=== PATIENT | female | born 1970 | race African-American/Black ===

== ENCOUNTER 2018-07-24 11:24 | Day surgery (SDC) | payer MEDICAID ==
[~2018-07-24 11:24] MED LIST: AK-Dilate ONE; IOPIDINE ONE; MYDRIACYL ONE
[2018-07-24] MEDS ORDERED: IOPIDINE OD ONE (12:15)
[2018-07-24] MEDS ORDERED: AK-Dilate OD ONE (12:16)
[2018-07-24] MEDS ORDERED: MYDRIACYL OD ONE (12:16)
[2018-07-24 14:33] VITALS: BP 115/76
== END 2018-07-24 14:30 | disposition home or self-care (01) ==
LOC: OR 11:24
PROVIDERS: ATTEND Specialist
DX: H26.491 Other secondary cataract, right eye (principal); G47.30 Sleep apnea, unspecified; M19.90 Unspecified osteoarthritis, unspecified site; F32.9 Major depressive disorder, single episode, unspecified; F17.210 Nicotine dependence, cigarettes, uncomplicated; Z79.4 Long term (current) use of insulin; Z79.899 Other long term (current) drug therapy; Z98.890 Other specified postprocedural states
CPT/HCPCS: 82962